=== PATIENT | male | born 1985 | race Caucasian/White ===

== ENCOUNTER 2021-02-05 13:32 | Emergency (ER) | payer OTHER ==
[2021-02-05 15:15] LABS: HEMOGLOBIN 17.6 gm/dl (14.0-17.5); RED BLOOD COUNT 5.72 M/UL (4.20-5.50); WHITE BLOOD COUNT 7.7 K/UL (4.5-11.0)
[2021-02-05 15:37] LABS: BUN/CREATININE RATIO 18 (0-10)
== END 2021-02-06 13:33 | disposition short-term general hospital (02) ==
LOC: ER1 13:32
PROVIDERS: Nurse Practitioner; Physician Assistant
DX: T50.902A Poisoning by unspecified drugs, medicaments and biological substances, intentional self-harm, initial encounter (principal); F17.290 Nicotine dependence, other tobacco product, uncomplicated; Z20.822 Contact with and (suspected) exposure to COVID-19
CPT/HCPCS: 36600; 70450; 71045; 80053; 80307; 81001; 82550; 82553; 82803; 83605; 83874; 84484; 85025; 85610; 85730; 93005; 99285; U0002